=== PATIENT | male | born 1950 | race Caucasian/White ===

== ENCOUNTER 2022-09-02 11:02 | Outpatient (CLI) | payer MEDICARE, BC, SELFPAY | END 2022-09-02 11:03 | disposition home or self-care (01) | PROVIDERS: PCP Family Medicine; Visit Provider Family Medicine | DX: E78.5 Hyperlipidemia, unspecified (principal); I10 Essential (primary) hypertension; E55.9 Vitamin D deficiency, unspecified; E11.9 Type 2 diabetes mellitus without complications; Z12.5 Encounter for screening for malignant neoplasm of prostate | CPT/HCPCS: 80048; 80061; 84153; 84460 ==

== ENCOUNTER 2023-08-25 13:15 | Outpatient (CLI) | payer MEDICARE, BC, SELFPAY | END 2023-08-25 13:16 | disposition home or self-care (01) | PROVIDERS: PCP Family Medicine; Visit Provider Family Medicine | DX: E11.9 Type 2 diabetes mellitus without complications (principal); Z79.4 Long term (current) use of insulin; E78.2 Mixed hyperlipidemia | CPT/HCPCS: 80048; 80061; 84460 ==

== ENCOUNTER 2023-09-19 13:50 | Outpatient (REF) | payer MEDICARE, BC, SELFPAY ==
[2023-09-19 14:58] LABS: Chloride* 104 mmol/L (96-114)
[2023-09-19 14:59] LABS: Potassium* 4.8 mmol/L (3.6-5.1); Sodium* 139 mmol/L (135-149)
[2023-09-19 15:01] LABS: Anion Gap 7 mEq/L (7-15); Carbon Dioxide* 28 mmol/L (20-32); Creatinine* 1.1 mg/dL (0.5-1.5); Estimated Glomerular Filt Rate 71 ml/min
[2023-09-19 15:02] LABS: Blood Urea Nitrogen* 28 mg/dL (7-30); Calcium* 10.7 mg/dL (8.4-10.6); Glucose* 238 mg/dL (60-115)
== END 2023-09-19 13:51 | disposition home or self-care (01) ==
LOC: NPINS 13:50
PROVIDERS: PCP Family Medicine; Visit Provider Nurse Practitioner
DX: I50.22 Chronic systolic (congestive) heart failure (principal)
CPT/HCPCS: 80048

== ENCOUNTER 2023-12-02 17:01 | Outpatient (CLI) | payer MEDICARE, BC, SELFPAY | END 2023-12-02 17:02 | disposition home or self-care (01) | LOC: NFLDREF 17:02 | PROVIDERS: PCP Family Medicine; Visit Provider Family Medicine | DX: Z12.5 Encounter for screening for malignant neoplasm of prostate (principal) | CPT/HCPCS: G0103 ==

== ENCOUNTER 2025-03-11 10:07 | Outpatient (CLI) | payer MEDICARE, BC, SELFPAY | END 2025-03-11 10:08 | disposition home or self-care (01) | LOC: NFLDREF 03-15 11:32 | PROVIDERS: PCP Family Medicine; Referring Provider Family Medicine; Visit Provider Family Medicine | DX: E11.9 Type 2 diabetes mellitus without complications (principal); E78.2 Mixed hyperlipidemia; I10 Essential (primary) hypertension; Z12.5 Encounter for screening for malignant neoplasm of prostate; Z13.9 Encounter for screening, unspecified; Z79.4 Long term (current) use of insulin | CPT/HCPCS: 80048; 80061; 84460; G0103 ==

== ENCOUNTER 2025-05-23 10:16 | Outpatient (CLI) | payer MEDICARE, BC, SELFPAY ==
--- NOTE | 2025-05-23 11:49 | P.ANES_ITS ---
Anesthesia Charges Start Date/Time Anesthesia Start Date: 05/23/25 Anesthesia Start Time: 11:16 Stop Date/Time Anesthesia Stop Date: 05/23/25 Anesthesia Stop Time: 11:46 Summary Extremes of Age - Over 70 or under 1: SALES MGR Coding CPT Codes CPT Codes: NATAN LWR INTST NDSC NOS - [id number] ([id number]) P4 - PT W/SEV SYS DIS THREAT LIFE, QK - OUTREACH ANALYST 2-4 CNCRNT ANES PROC, QX - SALES MGR SVC W/ MD MED DIRECTION Additional Codes: Summary - Extremes of Age - Over 70 or under 1: SALES MGR ([id number])
--- NOTE | 2025-05-23 11:49 | W.ANESCHARGE ---
Anesthesia Charges Start Date/Time Anesthesia Start Date: 05/23/25 Anesthesia Start Time: 11:16 Stop Date/Time Anesthesia Stop Date: 05/23/25 Anesthesia Stop Time: 11:46 Summary Extremes of Age - Over 70 or under 1: SAND WORKER Coding CPT Codes CPT Codes: NATAN LWR INTST NDSC NOS - [id number] ([id number]) P4 - PT W/SEV SYS DIS THREAT LIFE, QK - SCRAPE GATHERER 2-4 CNCRNT ANES PROC, QX - SAND WORKER SVC W/ MD MED DIRECTION Additional Codes: Summary - Extremes of Age - Over 70 or under 1: SAND WORKER ([id number])
--- NOTE | 2025-05-23 11:51 | P.ANES_ITS ---
Anesthesia Charges Start Date/Time Anesthesia Start Date: 05/23/25 Anesthesia Start Time: 11:16 Stop Date/Time Anesthesia Stop Date: 05/23/25 Anesthesia Stop Time: 11:46 Summary Extremes of Age - Over 70 or under 1: MDA Coding CPT Codes CPT Codes: ANES LWR INTST NDSC NOS - [id number] ([id number]) QK - WATER CHEMIST 2-4 CNCRNT ANES PROC, QX - TUBE ROOM SUPERVISOR SVC W/ MD MED DIRECTION, P4 - PT W/SEV SYS DIS THREAT LIFE Additional Codes: Summary - Extremes of Age - Over 70 or under 1: MDA ([id number])
== END 2025-05-23 10:17 | disposition home or self-care (01) ==
LOC: OP CLINIC 10:17
PROVIDERS: PCP Family Medicine; Visit Provider Internal Medicine
DX: Z12.11 Encounter for screening for malignant neoplasm of colon (principal); D12.8 Benign neoplasm of rectum; Z86.0101 Personal history of adenomatous and serrated colon polyps
CPT/HCPCS: 00811; 00812; 45380; 99100; J2704

== ENCOUNTER 2025-06-28 09:02 | Outpatient (CLI) | payer MEDICARE, BC, SELFPAY | END 2025-06-28 09:03 | disposition home or self-care (01) | LOC: FBOREF 09:03 | PROVIDERS: PCP Family Medicine; Visit Provider Family Medicine | DX: E11.65 Type 2 diabetes mellitus with hyperglycemia (principal); Z79.4 Long term (current) use of insulin | CPT/HCPCS: 82043; 82570 ==